=== PATIENT | male | born 1955 | race Caucasian/White ===

== ENCOUNTER 2016-12-28 23:26 | Inpatient (IN) ==
[2016-12-28] MEDS ORDERED: *HR* Ticagrelor 90 MG TABLET PO ONE (23:33)
--- NOTE | 2016-12-28 23:33 | Emergency Department Note ---
Disposition Clinical Impression: ST elevation myocardial infarction (STEMI) Qualifiers: Involved coronary artery: LAD coronary artery Qualified Code(s): I21.02 - ST elevation (STEMI) myocardial infarction involving left anterior descending coronary artery Disposition: Admitted As Inpatient Condition: Serious Chest Pain HPI - General Chief Complaint: ED Chest Pain Stated Complaint: CP Time Seen by Provider: 12/28/16 23:32 Source: patient Mode of arrival: EMS Limitations: no limitations Vital Signs Reviewed: Yes Nursing Notes Reviewed: Yes - History of Present Illness HPI Narrative: 61-year-old male history of COPD who presents to the ER due to chest pain. Patient reports he has had intermittent chest pain for the last few months. He states this evening and lasted longer than usual. He describes sharp pain in the center of his chest without radiation. No dyspnea, diaphoresis, nausea, vomiting. No history of coronary artery disease. No history of OH, DVT or PE. Patient was given one sublingual nitroglycerin and 324 mg aspirin prior to arrival. His pain is not reproducible on exam. His EKG demonstrated ST elevations in the anterior leads and STEMI alert was called at 23:20. Currently waiting for interventional cardiology. Patient given 180 mg of Brilinta and a heparin bolus. Pt complaint: chest pain Onset (ago): hour(s) Duration: constant Onset: during rest Pain Location: substernal Severity: moderate Severity scale (1-10): 5 Quality: sharp Pain Radiation: none Improves with: nothing Worsens with: nothing Associated symptoms: Denies: nausea, vomiting, diaphoresis Treatments prior to arrival chest pain: aspirin, nitroglycerin - Related Data On Oral Contraceptives: No Home Medications Medication Instructions Recorded Confirmed Albuterol Sulfate [Proair Hfa] 2 puff IH Q4H PRN 10/15/15 10/15/15 Trazodone HCl 200 mg PO HS 10/15/15 10/15/15 clonazePAM [Klonopin] 1 mg PO DAILY 10/15/15 10/15/15 Previous Rx's Medication Instructions Recorded Naproxen [Naprosyn] 500 mg PO BID #20 tablet 07/10/16 Allergies Allergy/AdvReac Type Severity Reaction Status Date / Time codeine AdvReac Nausea Verified 07/10/16 10:35 morphine AdvReac Vomiting Verified 07/10/16 10:35 All systems ED: reviewed and negative except as stated. Constitutional: Denies: fever Cardiovascular: Reports: chest pain. Denies: palpitations Respiratory: Denies: cough, dyspnea, wheezes Gastrointestinal: Denies: abdominal pain, nausea, vomiting, diarrhea Chest Pain PMH - Past Medical History Medical history: Reports: non-contributory, COPD Surgical history: Reports: arthroscopy Psychiatric history: Reports: no psych history - Social History Smoking Status: Current every day smoker Alcohol use: Reports: none Drug use: Reports: none Physical Exam - General Limitations: no limitations General appearance: alert, in no apparent distress - Head Head exam: atraumatic, normocephalic, normal inspection - Eye Eye exam: Present: normal appearance, EOMI - ENT ENT exam: normal exam - Neck Neck exam: Present: normal inspection, full ROM - Chest Chest inspection: Present: normal inspection, symmetric chest wall rise. Absent : tenderness - Respiratory Respiratory exam: Present: normal lung sounds bilaterally - Cardiovascular Cardiovascular exam: Present: regular rate, normal rhythm, normal heart sounds - Abdominal Exam Abdominal exam: Present: soft, Non-Tender. Absent: tenderness, distention, rigidity - Extremities Exam Extremities exam: Present: normal inspection, full ROM - Expanded Upper Extremity Exam Shoulder exam: Present: normal inspection, full ROM Arm exam: Present: normal inspection, full ROM Elbow exam: Present: normal inspection, full ROM Forearm/Wrist exam: Present: normal inspection, full ROM Hand exam: Present: normal inspection, full ROM Vascular exam: Normal: radial pulse - Expanded Lower Extremity Exam Hip/Pelvis exam: Present: normal inspection, full ROM Upper leg exam: Present: normal inspection, full ROM Knee exam: Present: normal inspection, full ROM Lower leg exam: Present: normal inspection, full ROM Ankle exam: Present: normal inspection, full ROM Foot/toe exam: Present: normal inspection, full ROM Neurovascular/Tendon exam: Absent: motor deficit, sensory deficit - Neurological Exam Neurological exam: Present: alert, other (ECS 15. Nonfocal neurologic exam.) - Psychiatric Psychiatric exam: Present: normal affect, normal mood - Skin Skin exam: Present: warm, dry, intact, normal color Course Course Narrative: Patient seen and examined. STEMI alert called prehospital based on transmitted EKG. His repeat EKG shows evolving ST elevations into the lateral leads as well. Currently waiting on interventional cardiology. - Consultations Consultation #1: Layboy Tender paged again Time: 23:35 Consultation #2: I spoke with the on-call scheduling administrator Dr. Cedillo. Discussed patient's history EKGs and interventions to date including 324 mg aspirin, one sublingual nitroglycerin, 180 mg of Brilinta and a heparin bolus. Requests to have EKG sent to him. We will send for evaluation. Time: 23:49 Vital Signs Temperature 98.6 F 12/28/16 23:28 Pulse Rate 86 12/28/16 23:28 Respiratory Rate 16 12/28/16 23:28 Blood Pressure 136/91 12/28/16 23:28 O2 Sat by Pulse Oximetry 96 12/28/16 23:28 Temperature 98.1 F 12/29/16 04:58 Pulse Rate 67 12/29/16 05:05 Respiratory Rate 17 12/29/16 05:05 Blood Pressure 96/63 12/29/16 05:05 O2 Sat by Pulse Oximetry 93 12/29/16 05:05 Oxygen Delivery Oxygen Delivery Room Air Chest Pain - MDM Narrative Medical decision making narrative: 61-year-old male presents to the ER due to chest pain. Intermittently for the last few months with worsening pain tonight. Prehospital EKG was transmitted demonstrating STEMI criteria. STEMI was called prior to the patient's arrival. Case discussed with the automotive collision estimator. The patient received aspirin and nitroglycerin prior to arrival. He was given a dose of Brilinta here as well as a heparin bolus. Patient taken emergently to the laboratory technologist for intervention. - Lab Data Lab results reviewed: Yes I reviewed the patient's lab results. Result diagrams: 12/28/16 23:30 12/28/16 23:30 Lab Results 12/28/16 12/28/16 12/28/16 Range/Units 23:30 23:30 23:30 WBC 9.2 (4.3-11.1) K/mcL RBC 5.02 (4.19-5.50) M/mcL Hgb 15.2 (12.9-16.9) g/dL Hct 44.6 (37.5-50.1) % MCV 88.8 (83.0-100.0) fL MCH 30.3 (28.0-33.3) pg MCHC 34.1 (31.6-35.5) g/dL RDW 14.4 (11.5-14.5) % Plt Count 231 (140-400) K/mcL MPV 9.7 (9.4-12.4) fL Immature Gran % 0.3 (0-4) % Seg Neutrophils % 66.4 % Lymphocytes % 19.0 % Monocytes % 10.1 % Eosinophils % 3.8 % Basophils % 0.4 % Neutrophils # 6.1 (1.6-8.9) K/mcL Lymphocytes # 1.8 (0.6-4.6) K/mcL Monocytes # 0.9 (0.0-1.3) K/mcL Eosinophils # 0.4 (0.0-0.6) K/mcL Basophils # 0.0 (0.0-0.2) K/mcL PT 11.8 (9.4-12.1) Seconds INR 1.1 APTT 29.2 (26.0-36.0) Seconds Sodium 135 L (136-145) mEq/L Potassium 4.6 H (3.5-4.5) mEq/L Chloride 101 (98-109) mEq/L Carbon Dioxide 23 (19-29) mEq/L BUN 14 (8-26) mg/dL Creatinine 1.13 (0.72-1.25) mg/dL Est GFR ( Amer) > 60 (> 60) Est GFR (Non-Af Amer) > 60 (> 60) BUN/Creatinine Ratio 12 (6-26) Glucose 116 H (70-99) mg/dL Calculated Osmolality 281 (280-300) Calcium 9.6 (8.6-10.8) mg/dL Troponin I (0-0.03) ng/mL 12/28/16 Range/Units 23:30 WBC (4.3-11.1) K/mcL RBC (4.19-5.50) M/mcL Hgb (12.9-16.9) g/dL Hct (37.5-50.1) % MCV (83.0-100.0) fL MCH (28.0-33.3) pg MCHC (31.6-35.5) g/dL RDW (11.5-14.5) % Plt Count (140-400) K/mcL MPV (9.4-12.4) fL Immature Gran % (0-4) % Seg Neutrophils % % Lymphocytes % % Monocytes % % Eosinophils % % Basophils % % Neutrophils # (1.6-8.9) K/mcL Lymphocytes # (0.6-4.6) K/mcL Monocytes # (0.0-1.3) K/mcL Eosinophils # (0.0-0.6) K/mcL Basophils # (0.0-0.2) K/mcL PT (9.4-12.1) Seconds INR APTT (26.0-36.0) Seconds Sodium (136-145) mEq/L Potassium (3.5-4.5) mEq/L Chloride (98-109) mEq/L Carbon Dioxide (19-29) mEq/L BUN (8-26) mg/dL Creatinine (0.72-1.25) mg/dL Est GFR ( Amer) (> 60) Est GFR (Non-Af Amer) (> 60) BUN/Creatinine Ratio (6-26) Glucose (70-99) mg/dL Calculated Osmolality (280-300) Calcium (8.6-10.8) mg/dL Troponin I 0.14 H* (0-0.03) ng/mL - Radiology Data Radiology results reviewed: Yes I reviewed the patient's radiology results. Chest X-Ray 12/28/16 23:31 IMPRESSION: Negative portable study. D/ / Taina Salinas Cha, MD / Taina Salinas Cha, MD Interpreting Provider: Taina Salinas Cha, MD - EKG Data EKG attestation: Yes I reviewed and interpreted this EKG. EKG results narrative: EKG demonstrates sinus rhythm with a rate of 80 bpm. Normal axis. Normal intervals. Normal R-wave progression. EKG demonstrates ST elevations in leads V3V5. ST elevations of roughly 3 mm without reciprocal changes. No ST depressions. Changes from previous EKG include ST elevations in the anterior lateral leads. STEMI Heart Score - Score History: Moderately Suspicious EKG: Significant ST-Depression Age: 45-65 Risk Factors: 1-2 risk factors Troponin: Greater than 3x normal limit HEART Score Total: 7 Critical Care Time Critical Care Time: Yes Total Critical Care Time: 40 Attestation: Critical care performed: Time is exclusive of separately billable procedures. Time includes: direct patient care, patient reassessment, coordination of patient care, interpretation of data (laboratory data, radiology data, and respiratory data), review of patient's medical records, medical consultation and documentation of patient care. Procedures included in critical care time: Procedures excluded from critical care time: Attestation Statement - Attestation Attestation: I, Alok Argueta MD, personally evaluated this patient and discussed their management with the resident physician. I reviewed the resident's note and agree with the documented findings, medical decision making, and plan of care. 61-year-old male presents to the emergency department by EMS with a complaint of substernal chest pain which started about one hour prior to arrival. Onset of pain was while at rest. Patient denies any prior history of heart problems. Transmitted EKG from EMS shows an anteroseptal STEMI. STEMI alert was called prior to patient's arrival in the emergency department. EKG on arrival here confirms the anteroseptal STEMI with worsening of the ST elevation. Patient complains of mid substernal chest pain radiating to the left arm and to the back. He rated the pain about a 7 or 8 at the worse. He received 4 baby aspirin and one nitroglycerin per EMS just shortly prior to arrival in at present he rates the pain about a 5 out of 10. No shortness of breath or diaphoresis. No nausea or vomiting. No palpitations. On examination patient is a well-developed well-nourished well-appearing male in no acute distress. He is alert and oriented 3. There is no cyanosis or diaphoresis. Chest is nontender to palpation. Breath sounds are decreased but equal bilaterally. No rales or wheezes noted. Heart regular rate and rhythm. Abdomen soft and nontender with normal bowel sounds. No pedal edema. EKG shows ST elevation in V2 through V5. Chest x-ray negative. Labs reviewed. Troponin 0.14. Patient received heparin and Brilinta in the emergency department and was taken directly to the cardiac catheter lab for interventional catheter. hide mill man on-call is Dr. Cedillo.
[2016-12-28] MEDS ORDERED: *HR* Heparin 5,000 UNIT/ML VIAL IVP PRN ×2 (23:34)
[2016-12-28] MEDS ORDERED: *HR* Heparin 5,000 UNIT/ML VIAL IVP ONE (23:34)
[2016-12-28 23:41] LABS: Basophils % 0.4 %; Eosinophils # 0.4 K/mcL (0.0-0.6); Eosinophils % 3.8 %; Hematocrit 44.6 % (37.5-50.1); Hemoglobin 15.2 g/dL (12.9-16.9); Immature Granulocytes % 0.3 % (0-4); Lymphocytes # 1.8 K/mcL (0.6-4.6); Mean Corpuscular HGB Conc 34.1 g/dL (31.6-35.5); Mean Corpuscular Hemoglobin 30.3 pg (28.0-33.3); Mean Corpuscular Volume 88.8 fL (83.0-100.0); Mean Platelet Volume 9.7 fL (9.4-12.4); Monocytes # 0.9 K/mcL (0.0-1.3); Monocytes % 10.1 %; Neutrophils # 6.1 K/mcL (1.6-8.9); Platelet Count 231 K/mcL (140-400); Red Blood Count 5.02 M/mcL (4.19-5.50); Red Cell Distribution Width 14.4 % (11.5-14.5); Segmented Neutrophils % 66.4 %
[2016-12-28] MEDS ORDERED: Nitroglycerin 0.4 MG TAB.SUBL SL PRN (23:41)
[2016-12-28 23:46] LABS: INR 1.1; Prothrombin Time 11.8 Seconds (9.4-12.1)
[2016-12-28 23:49] LABS: Activated Partial Thrombo Time 29.2 Seconds (26.0-36.0)
[2016-12-28] MEDS ORDERED: 0.9 % Sodium Chloride 1,000 ML ONE ×2 (23:52→23:53)
[2016-12-28] MEDS ORDERED: Heparin 1,000 UNITS/500 mL NS 500 ML ONE (23:52)
[2016-12-28] MEDS ORDERED: Nitroglycerin 1,000 MCG/10 ML VIAL IV ONE (23:52)
[2016-12-28] MEDS ORDERED: Verapamil 5 MG/2 ML VIAL ONE (23:52)
[2016-12-28 23:53] LABS: BUN/Creatinine Ratio 12 (6-26); Blood Urea Nitrogen 14 mg/dL (8-26); Calcium 9.6 mg/dL (8.6-10.8); Carbon Dioxide 23 mEq/L (19-29); Chloride 101 mEq/L (98-109); Glucose 116 mg/dL (70-99); Osmolality,Calculated 281 (280-300); Potassium 4.6 mEq/L (3.5-4.5); Sodium 135 mEq/L (136-145); eGFR For African Americans > 60 (> 60); eGFR For Non-African Americans > 60 (> 60)
[2016-12-29] MEDS ORDERED: *HR* FentaNYL (PF) 100 MCG/2 ML VIAL ONE (00:03)
[2016-12-29] MEDS ORDERED: *HR* Midazolam HCl 2 MG/2 ML VIAL ONE (00:03)
[2016-12-29] MEDS ORDERED: Tirofiban 12.5 MG/250ML 12.5 MG/250 ML BAG ONE (00:12)
[2016-12-29] MEDS ORDERED: *HR* HYDROcodone/Acet 5/325 mg TABLET PO PRN (00:40)
[2016-12-29] MEDS ORDERED: *HR* Morphine 2 MG/ML SYRINGE IVP PRN (00:40)
[2016-12-29] MEDS ORDERED: Acetaminophen 325 MG TABLET PO PRN (00:40)
--- NOTE | 2016-12-29 00:40 | Pre-Sedation Evaluation ---
Pre-sedation evaluation - Pre-sedation checklist Date of procedure: 12/29/16 Procedure: [facility] Recent Vitals: Last Vital Signs Temp 98.6 F 12/28/16 23:28 Pulse 84 12/28/16 23:46 Resp 18 12/28/16 23:46 BP 133/104 12/28/16 23:46 Pulse Ox 95 12/28/16 23:46 H&P (including ROS) documented in medical record: Yes Previous reaction to sedatives/anesthetics: No Dietary Status: unknown Dentition: dentures removed ASA Classification *see protocol: CLASS II-Mild systemic disease, E-EMERGENCY- Add to any of the above to indicate emergent Plan of Care: Pt appropriate candidate for procedure/moderate/conscious sedation , Risks/benefits of procedure/sedation discussed w/ patient/family, If not NPO; Risk of intake outweiged by necessity to perform procedure
--- NOTE | 2016-12-29 00:40 | Cardiology History & Physical ---
Date of Encounter: 01/02/17 Time of Encounter: 12:45 Assessment and Plan (1) ST elevation myocardial infarction (STEMI) Status: Acute Anterolateral STEMI - emergent LHC to delineate coronary disease amenable to intervention. EF assessment will be done. Aspirin, brilinta, heparin, statin. Cardiac rehab. Guarded prognosis. Total critical care time - 1 hour. Qualifiers: Involved coronary artery: LAD coronary artery Qualified Code(s): I21.02 - ST elevation (STEMI) myocardial infarction involving left anterior descending coronary artery (2) Hyperlipidemia Status: Chronic Per cardiology: -KNown hyperlipidemia. -LAbs in September with LDL 116. -Was not on statin at home. -Start on atorvastatin while inpatient. Qualifiers: Hyperlipidemia type: mixed hyperlipidemia Qualified Code(s): E78.2 - Mixed hyperlipidemia (3) Tobacco abuse Status: Chronic Per cardiology: -KNown tobacco abuse. Admits to smoking 1.5-2ppd for 40 years, -Will order nicotine patch. History of Present Illness Chief complaint: chest pain HPI: Mr. Meng is a 61 year old male smoker no previous cardiac history presenting with severe retrosternal chest discomfort that restarted earlier this morning around 530. He notes intermittent symptoms for quite some time but does not specify. Chest discomfort radiates across chest and is associated with dyspnea. It had minimal improvement with aspirin/NTG/morphine and remains a 9/ 10. Anterolateral STEMI seen on EKG and bobcat driver/labor activated. Past Med Surg Social Fam HX - Past Medical History Medical history: non-contributory, COPD Psychiatric history: no psych history - Past Surgical History Surgical History: arthroscopy - Social History Smoking Status: Current every day smoker Smokeless Tobacco Status: No Alcohol use: none Drug use: none Medications and Allergies Albuterol Sulfate [Proair Hfa] 2 puff IH Q4H PRN 10/15/15 [History] Trazodone HCl 200 mg PO HS 10/15/15 [History] clonazePAM [Klonopin] 1 mg PO DAILY 10/15/15 [History] Mometasone/Formoterol [Dulera 100 Mcg/5 Mcg Inhaler] 2 puff IH BID 12/29/16 [ History] Aspirin 81 mg PO DAILY #30 tab.chew 12/31/16 [Rx] Atorvastatin [Lipitor] 80 mg PO HS #30 tablet 12/31/16 [Rx] Metoprolol [Lopressor] 12.5 mg PO BID #30 tablet 12/31/16 [Rx] Nicotine Patch [Nicoderm] 21 mg TD DAILY #28 patch.td24 12/31/16 [Rx] Nitroglycerin 0.4 mg SL Q5MIN PRN #30 tab.subl 12/31/16 [Rx] Ticagrelor [Brilinta] 90 mg PO BID #60 tablet 12/31/16 [Rx] 3 Allergy/AdvReac Type Severity Reaction Status Date / Time codeine AdvReac Nausea Verified 07/10/16 10:35 morphine AdvReac Vomiting Verified 07/10/16 10:35 All Systems Review: A 10-system review of systems was performed and is negative for pertinent findings except as documented above in the HPI. - Constitutional Constitutional: no chills, no fever(s) - EENT Eyes: no blurred vision, no loss of vision Nose, mouth and throat: no bleeding gums, no epistaxis - Cardiovascular Cardiovascular: chest pain at rest, chest pain with exertion - Respiratory Respiratory: dyspnea, no hemoptysis, no wheezing - Gastrointestinal Gastrointestinal: no hematemesis, no hematochezia - Genitourinary Genitourinary: no hematuria, no nocturia - Musculoskeletal Musculoskeletal: no back pain, no myalgias - Integumentary Integumentary: no erythema, no rash - Neurological Neurological: no focal weakness, no loss of vision - Psychiatric Psychiatric: no hallucinations, no panic attacks - Hematological/Lymphatic Hematologic/Lymphatic: no easy bruising Physical Examination General: Conversant, Other (distressed) HEENT: Atraumatic, Normocephaly Neck: No JVD Cardiac: Reg Rate and Rhythm Lungs: Other (occ wheezes) Neuro: Alert and responsive Abdomen: Soft Skin: No rashes noted on visualized skin Musculoskeletal: No Chest Wall Tenderness Extremities: No Edema Results 12/29/16 06:38 12/29/16 06:38 - EKG Interpretation EKG results cardiology: personally reviewed (anterolateral current of injury)
[2016-12-29] MEDS ORDERED: Ondansetron 4 MG/2 ML VIAL IVP PRN (00:41)
[2016-12-29] MEDS ORDERED: Tirofiban 12.5 MG/250ML 12.5 MG/250 ML BAG IVC SCH (00:45)
--- NOTE | 2016-12-29 01:03 | Invasive Diagnostic Lab Proc ---
Name: Usman Meng Date of Study: 12/28/2016 Date: 1955 Ht: 66.1in Medical Record#: [id number] Age: 61 Wt: 139.99lb Gender: Male BSA: 1.72 Order #: [id number] BMI: 22.5 Physicians Procedure Physician: Ervin Cedillo MD, FACC Referring MD: Referring MD: Staff Name Position Time In Wander Solitario RT (R) Scrub 12:02 AM Chanell Sanchez RN Books Salesperson 12:03 AM Carol Stapleton RN Books Salesperson 12:03 AM Amador Matute RN Books Salesperson 12:04 AM Genoveva Perez RN Monitor 12:04 AM Indications Indication STEMI Procedures Performed Procedure PRQ CARD REVASC CA 1 VSL L HRT ARTERY/VENTRICLE ANGIO Pre-Procedure Checklist Informed consent is complete signed and on chart. H&P is on chart. ID band is on and ID verified with patient. Patient NPO for procedure The procedure was described for the patient and questions were answered. Blood Pressure: 133/77 ECG is on chart. Rhythm: NSR Plan of Care Patient will tolerate the procedure without complications. Adequate level of comfort will be maintained. Hemodynamics will remain stable Patient will recover from procedure without complications. Respiratory function will be maintained. Cardiac rhythm will remain stable. Patient temperature will be maintained. Patient and/or family have verbalized understanding of the procedure. Patient Education Chief Complaint/Reason for Test: Cardiac Cath Developmental Category: Adult (18-64 years) Developmentally Appropriate for Age: Yes Learning Barriers: None Education Needs: Procedure Education Method: Verbal Information Taught: Cardiac Cath Educational Evaluation: Able to repeat information Intravenous Access Time IV Size Location DC'd Fluid/Drip Rate Units RN 11:59 PM 20g 1 1/4" Patent On Arrival Lt Antecubital 0.9NaCl 100 ml/hr Carol Stapleton RN 11:59 PM 20g 1 1/4" Patent On Arrival Rt Wrist Allergies *HR* CODEINE Vital Signs Time BP (mmHg) HR (bpm) O2 Sat. RR (bpm) LOC 12:12 AM / % 5 = Fully awake and oriented or at pre-proc level 12:12 AM / % 5 = Fully awake and oriented or at pre-proc level 11:58 PM / 82 94 % 11:59 PM 133 / 77 81 96 % 9 5 = Fully awake and oriented or at pre-proc level 12:04 AM 115 / 73 80 96 % 20 5 = Fully awake and oriented or at pre-proc level 12:09 AM 88 / 69 83 95 % 17 5 = Fully awake and oriented or at pre-proc level 12:10 AM 98 / 66 72 95 % 20 5 = Fully awake and oriented or at pre-proc level 12:14 AM 106 / 70 80 94 % 19 5 = Fully awake and oriented or at pre-proc level 12:19 AM 107 / 70 80 95 % 19 5 = Fully awake and oriented or at pre-proc level 12:23 AM 95 / 64 85 95 % 14 5 = Fully awake and oriented or at pre-proc level 12:24 AM 101 / 62 81 95 % 15 5 = Fully awake and oriented or at pre-proc level 12:29 AM 104 / 60 83 96 % 17 5 = Fully awake and oriented or at pre-proc level 12:34 AM 104 / 63 79 96 % 17 5 = Fully awake and oriented or at pre-proc level 12:39 AM 116 / 75 81 96 % 11 Procedural Medications Time Medication Dose Units Method Given By 12:05 AM Oxygen 2 L/min nasal cannula Carol Stapleton RN 12:05 AM Versed 2 mg Intravenous Carol Stapleton RN 12:05 AM Fentanyl 50 mcg Intravenous Carol Stapleton RN 12:13 AM Aggrastat Bolus: 33 ml Intravenous Carol Stapleton RN 12:13 AM Aggrastat 12.5mg/250ml 12 ml/hr Intravenous Carol Stapleton RN 12:19 AM Nitroglycerin 75 mcg Intracoronary Ervin Cedillo MD ASA Classification: Emergent Procedure: ASA score is assumed John Score Preprocedure Postprocedure Activity 2- Moves 4 extremities sustained head lift Activity 2- Moves 4 extremities sustained head lift Circulation 2- SBP +/= 20 points of pre-anesthetic level Circulation 2- SBP +/= 20 points of pre-anesthetic level Consciousness 2- Awake and alert oriented x 3 Consciousness 2- Awake and alert oriented x 3 O2 Saturation 2- Able to maintain O2 satruation of 92% on room air O2 Saturation 2- Able to maintain O2 satruation of 92% on room air Respiratory 2- Able to deep breathe and cough well Respiratory 2- Able to deep breathe and cough well Total Score 10 Total Score 10 Contrast Agent: Isovue Diagnostic Contrast: 121 ml Total Contrast: 121 ml Fluoro Dose: 205 mGy Activated Clotting Time Time Seconds to Clot 12:35 AM 259 Procedure Log Time Note Enter By 11:54 PM Pt arrived to manager labor delivery 2 at 23[facility] 11:58 PM HR=82 bpm, SpO2=94 % 11:59 PM Vitals capture started with the following parameters, Patient=Adult, Interval=5 min, Initial Fuiumrjl=918 mmHg, Deflation Rate=5 mmHg, Cuff placed on Left Arm 11:59 PM HR=81 bpm, AKVQ=049/77 mmhg, SpO2=96.0 %, Resp=9 B/min, Comment=SR 12:00 AM Genoveva Perez RN Position: Monitor Time in: 00:00 [facility] 12:01 AM Recorded ECG: HR=89 Condition=Condition 1 12:02 AM Meet and greet completed ejohnson 12:02 AM Pressure channel 3 zero failed. 12:02 AM Pressure channel 3 zeroed. 12:02 AM Procedure start 00:02 [email or web address] 12:03 AM Wander Solitario RT (R) Position: Scrub Time in: 00:02 [facility] 12:03 AM Chanell Sanchez RN Position: Books Salesperson Time in: 00:03 [facility] 12:04 AM Carol Stapleton RN Position: Books Salesperson Time in: 00:03 [facility] 12:04 AM Amador Matute RN Position: Books Salesperson Time in: 00:04 [facility] 12:04 AM HR=80 bpm, QMTP=944/73 mmhg, SpO2=96.0 %, Resp=20 B/min, Comment=SR 12:05 AM Time: 00:05 Versed 2 mg Intravenous Given by Carol Stapleton RN 12:05 AM Time: 00:05 Fentanyl 50 mcg Intravenous Given by Carol Stapleton RNohhan 12:05 AM Time out performed according to hospital policy [email or web address] 12:05 AM Time: 00:05 Oxygen on at 2 L/min per nasal cannula by Carol Stapleton RNohhan 12:06 AM Time: 00:006 15 ml Lidocaine 2% to right groin Subcutaneous Given by Ervin Cedillo MD, [facility] [email or web address] 12:07 AM Access obtained by percutaneous puncture. 6Fr 10cm Terumo [place] sheath placed in right Femoral artery. [id number] ejohnson 12:09 AM HR=83 bpm, NIBP=88/69 mmhg, SpO2=95.0 %, Resp=17 B/min, Comment=SR 12:09 AM NIBP STAT measurement started. 12:10 AM 6Fr EBU 3.0 Medtronic guide catheter was used to cannulate the PCI vessel successfully. reused? No ejohnson 12:10 AM .014 [place] 150cm guide wire across target lesion- successful. reused? No ejohnson 12:10 AM HR=72 bpm, NIBP=98/66 mmhg, SpO2=95.0 %, Resp=20 B/min, Comment=SR 12:10 AM Recorded Pressure: Ao, HR=80, Condition=Condition 1 (Aorta) Ao 85/52/67 12:10 AM Inflation device was opened. ejohnson 12:11 AM 2.0 mm x 12 mm Emerge Monorail balloon across target lesion- successful. reused? No ejohnson 12:11 AM Balloon inflated @ 6 marina for 3 seconds ejohnson 12:11 AM Time: 00:11 Patient comfortable and pain free: Yes ejohnson 12:12 AM Time: 00:12LOC: 5 = Fully awake and oriented or at pre-proc level ejohnson 12:13 AM Balloon inflated @ 10 marnia for 15 seconds ejohnson 12:13 AM Time: 00:13 Aggrastat Bolus: 33 ml Intravenous Given by Carol Stapleton RN Ashley pump ejohnson 12:14 AM Time: 00:13 Aggrastat 12.5mg/250ml 12 ml Intravenous Given by Carol Stapleton RN Ashley pump ejohnson 12:14 AM Balloon inflated @ 10 marina for 20 seconds ejohnson 12:14 AM Lesion found in Mid LAD. Pre Stenosis: 99 Pre FAIZA Flow: 1: Slow Penetration without Perfusion ejohnson 12:14 AM HR=80 bpm, TGOL=248/70 mmhg, SpO2=94.0 %, Resp=19 B/min, Comment=SR 12:14 AM Mid/Distal Left Anterior Descending Coronary Artery and diagonal branches with 99% stenosis. ejohnson 12:15 AM Recorded Pressure: Ao, HR=84, Condition=Condition 1 (Aorta) Ao 89/55/71 12:15 AM 2.25mm x 24mm Synergy drug-eluting stent across target lesion- successful Lot #[id number] ejohnson 12:16 AM Stent deployed @ 14 marina for 24 seconds ejohnson 12:17 AM Recorded Pressure: Ao, HR=81, Condition=Condition 1 (Aorta) Ao 75/44/59 12:18 AM 2.25 mm x 15mm NC Trek Rx balloon across target lesion- successful. reused? No ejohnson 12:19 AM Balloon inflated @ 16 marina for 12 seconds ejohnson 12:19 AM HR=80 bpm, ZNKT=315/70 mmhg, SpO2=95.0 %, Resp=19 B/min, Comment=SR 12:20 AM Time: 00:19 Nitroglycerin 75 mcg Intracoronary Given by Ervin Cedillo MD ejohnson 12:21 AM Balloon catheter removed intact. ejohnson 12:22 AM NIBP STAT measurement started. 12:22 AM 2.25mm x 8mm Synergy drug-eluting stent across target lesion- successful Lot #[id number] ejohnson 12:22 AM Stent deployed @ 11 marina for 20 seconds ejohnson 12:23 AM HR=85 bpm, NIBP=95/64 mmhg, SpO2=95.0 %, Resp=14 B/min, Comment=SR 12:23 AM Stent deployed @ 14 marina for 25 seconds ejohnson 12:23 AM Lesion found in Proximal LAD. Pre Stenosis: 30 Pre FAIZA Flow: 3: Complete and Brisk Flow/Perfusion ejohnson 12:24 AM Lesion found in Distal Circumflex. Pre Stenosis: 40 Pre FAIZA Flow: 3: Complete and Brisk Flow/Perfusion ejohnson 12:24 AM Lesion found in 1st Marginal. Pre Stenosis: 20 Pre FAIZA Flow: 3: Complete and Brisk Flow/Perfusion ejohnson 12:24 AM Stent delivery system removed intact. ejohnson 12:24 AM Guide wire removed intact. ejohnson 12:24 AM Pressure channel 3 zeroed. 12:24 AM HR=81 bpm, NCZL=045/62 mmhg, SpO2=95.0 %, Resp=15 B/min, Comment=SR 12:24 AM Proximal Left Anterior Descending Coronary Artery with 30% stenosis. ejohnson 12:25 AM Circumflex, Obtuse Marginal, Left Posterior Descending, and Left Posterolateral Coronary Arteries with 40 % stenosis. ejohnson 12:25 AM Guide catheter removed intact. ejohnson 12:25 AM 5Fr FR 4 catheter inserted over the wire DNC ejohnson 12:25 AM Patient charges- Angio tray pack, Navilyst 3mm J, Pulse Oximetry and ACIST tubing and transducer ejohnson 12:26 AM Coronary Dominance: right ejohnson 12:27 AM Time: 00:12LOC: 5 = Fully awake and oriented or at pre-proc level ejohnson 12:27 AM Time: 00:11 Patient comfortable and pain free: Yes ejohnson 12:27 AM Coronary Dominance: right ejohnson 12:27 AM Catheter removed ejohnson 12:28 AM 5Fr Pigtail catheter inserted over the wire DNC ejohnson 12:28 AM Recorded Pressure: LV, HR=97, Condition=Condition 1 (Left Ventricle) LV 106/38/18 12:28 AM Catheter selectively placed in left ventricle ejohnson 12:28 AM Bolus angiogram of left Ventricle complete: 10 ml/sec for a total of 20 mls ejohnson 12:29 AM Recorded Pressure: LV, Ao, HR=82, Condition=Condition 1 (Left Ventricle) LV 108/11/23, (Aorta) Ao 104/69/85 12:29 AM Catheter removed ejohnson 12:29 AM Bolus angiogram of right Femoral complete: 4 ml/sec for a total of 7 mls ejohnson 12:29 AM HR=83 bpm, BMRC=253/60 mmhg, SpO2=96.0 %, Resp=17 B/min, Comment=SR 12:29 AM Recorded Pressure: Ao, HR=84, Condition=Condition 1 (Aorta) Ao 112/67/85 12:32 AM Procedure completed at 00:32 ejohnson 12:32 AM Sign out completed: Radiation Dose 204.7 mGy Fluoro Time: 3.3 Isovue 370 - 200ml contrast 121 ml given by Ervin Cedillo MD, [facility]. Complications: NoneCardiac Rehab Consult needed: YesConfirmed administered medications: Yes ejohnson 12:34 AM HR=79 bpm, LJDL=535/63 mmhg, SpO2=96.0 %, Resp=17 B/min, Comment=SR 12:35 AM Arterial sheath pulled, Mynx closure device used and was Successful [id number] S/N. ejohnson 12:37 AM Site status No bleeding/hematoma - Rt Groin as reported by Wander Solitario RT (R) at 00:48 ejohnson 12:37 AM Isovue 370 - 200ml,1 Bottle(s) used. ejohnson 12:39 AM HR=81 bpm, ZDAN=122/75 mmhg, SpO2=96.0 %, Resp=11 B/min, Comment=SR 12:42 AM Time: 00:27 Patient comfortable and pain free: Yes ejohnson 12:47 AM Post ECG NSR ejohnson 12:47 AM Post Blood Pressure 116/75 ejohnson 12:47 AM 00:47 Post Pulses Bilateral DP & PT 1+ ejohnson 12:47 AM Information taught PCI and Mynx ejohnson 12:48 AM Learning barriers :None ejohnson 12:48 AM Education Methods Verbal ejohnson 12:48 AM Education evaluation Able to repeat information ejohnson 12:49 AM Opsite applied ejohnson 12:49 AM Plavix, Effient or Brilinta given Yes in ER ejohnson 12:51 AM Patient out of room: 00:51 ejohnson 12:51 AM Family placed in consult room. ejohnson 12:51 AM Complications: None ejohnson 12:51 AM At 00:35 the ACT was 259 seconds. ejohnson 12:52 AM Lesion found in Mid RCA. Pre Stenosis: 70 Pre FAIZA Flow: 3: Complete and Brisk Flow/Perfusion ejohnson 12:52 AM Right Coronary, Right Posterior Descending Arteries with Right Posterolateral and Acute Marginal branches with 70 % stenosis. ejohnson 11:59 PM Physician arrived 23:59 ejohnson 11:59 PM Sign in performed according to hospital policy. ejohnson Complications Complication None Hemodynamics Pressures Site Systolic/A Wave Diastolic/V Wave Mean AO 85 52 67 AO 89 55 71 AO 75 44 59 LV 106 38 18 LV 108 11 23 AO 104 69 85 AO 112 67 85 Post Procedure Information Blood Pressure: 116/75 mmHg Rhythm: NSR Post procedural instructions were given Closure Device Time Device Success/Fail 12/29/2016 12:35:00 AM MynxGrip Successful Site Checks Time Location Status Staff Sheath In? Note 12:35 AM Rt Groin No bleeding/ No Hematoma Wander Solitario RT (R) 12:48 AM Rt Groin No bleeding/hematoma Wander Solitario RT (R) Pulses Time Site Pre-Procedure Post-Procedure Note 12/29/2016 11:59:00 PM Bilateral DP & PT 1+ 12:47:00 AM Bilateral DP & PT 1+ Updated by Genoveva Perez RN on 12/29/2016 12:56:34 AM Genoveva Perez RN electronically signed on 12/29/2016 12:56:58 AM with status of Final
[2016-12-29] MEDS: *HR* OxyCODONE/APAP 5/325 TABLET PO PRN ×4 (01:11→19:27)
[2016-12-29 06:55] LABS: Basophils % 0.3 %; Eosinophils # 0.3 K/mcL (0.0-0.6); Eosinophils % 3.1 %; Hematocrit 38.3 % (37.5-50.1); Immature Granulocytes % 0.6 % (0-4); Lymphocytes # 1.7 K/mcL (0.6-4.6); Lymphocytes % 18.1 %; Mean Corpuscular HGB Conc 34.2 g/dL (31.6-35.5); Mean Corpuscular Hemoglobin 30.5 pg (28.0-33.3); Mean Corpuscular Volume 89.1 fL (83.0-100.0); Mean Platelet Volume 9.6 fL (9.4-12.4); Monocytes % 10.8 %; Neutrophils # 6.3 K/mcL (1.6-8.9); Platelet Count 189 K/mcL (140-400); Red Cell Distribution Width 14.6 % (11.5-14.5); Segmented Neutrophils % 67.1 %
[2016-12-29 07:10] LABS: Alanine Aminotransferase 26 Units/L (0-55); Albumin 3.1 g/dL (3.5-5.0); Albumin/Globulin Ratio 1.1 (1.1-2.2); Alkaline Phosphatase 124 Units/L (38-126); Aspartate Amino Transferase 55 Units/L (5-34); BUN/Creatinine Ratio 16 (6-26); Blood Urea Nitrogen 15 mg/dL (8-26); Calcium 8.5 mg/dL (8.6-10.8); Carbon Dioxide 22 mEq/L (19-29); Chloride 110 mEq/L (98-109); Globulin 2.8 g/dL (2.4-3.5); Glucose 112 mg/dL (70-99); Osmolality,Calculated 290 (280-300); Potassium 3.9 mEq/L (3.5-4.5); Sodium 139 mEq/L (136-145); Total Protein 5.9 g/dL (6.0-8.3); eGFR For African Americans > 60 (> 60); eGFR For Non-African Americans > 60 (> 60)
[2016-12-29 07:13] LABS: Bilirubin,Total < 0.2 mg/dL (0.2-1.2)
[2016-12-29] MEDS: Aspirin 81 MG TAB.CHEW PO SCH (07:50)
[2016-12-29] MEDS: *HR* Ticagrelor 90 MG TABLET PO SCH ×2 (07:50→19:22)
[2016-12-29 08:41] LABS: Hemoglobin 13.1 g/dL (12.9-16.9)
--- NOTE | 2016-12-29 12:04 | Event Note ---
Date of Encounter: 12/29/16 Time of Encounter: 10:00 - Cardiology Event Note Patient presented to [facility] as STEMI. Patient was taken emergently to the chemical lab technician. Patient received 2 MILADIS to mid LAD. Patient is on asa and brilinta. Educated on dual anti-platelet therapy uninterrupted for at least one year. Will start beta susanna and statin. Denies chest pain, however reports some chest achiness. Will continue to monitor. Echo with LVEF 55%, mild diastolic dysfunction, apex, apical septal, and mid anterior septal michael hypokinetic. Patient educated on importance of smoking cessation. Right groin access site without bleeding or hematoma. Right DP pulse 2+.
[2016-12-29] MEDS: clonazePAM 1 MG TABLET PO SCH (13:35)
--- NOTE | 2016-12-29 20:55 | Electrocardiograph Report ---
[address] [place], [place] [address] Test Date: 2016-12-28 Pat Name: Usman Meng Department: 103 Room: 10 Gender: M Cafeteria Assistant: GINETTE : 1955 Requested By: Rufus Darden Order Number: [id number] Reading MD: Ervin Cedillo MD Measurements Intervals [place] Rate: 88 P: 68 HI: 174 QRS: 23 QRSD: 90 T: 69 QT: 347 QTc: 393 Interpretive Statements SINUS RHYTHM ANTERIOR CURRENT OF INJURY - ACUTE [place] BASELINE ARTIFACT Electronically Signed On 12-29-2016 20:53:43 EDT by Ervin Cedillo MD
--- NOTE | 2016-12-29 20:57 | Electrocardiograph Report ---
[place] [address] Test Date: 2016-12-29 Pat Name: Usman Meng Department: 109 Room: 10 Gender: M Associate Dean Of Women: MINERVA : 1955 Requested By: Ervin Cedillo Order Number: [id number] Reading MD: Ervin Cedillo MD Measurements Intervals [place] Rate: 76 P: 74 [place]: 174 QRS: 65 QRSD: 94 T: 78 QT: 370 QTc: 400 Interpretive Statements SINUS RHYTHM Electronically Signed On 12-29-2016 20:55:00 EDT by Ervin Cedillo MD
[2016-12-30] MEDS: *HR* OxyCODONE/APAP 5/325 TABLET PO PRN ×4 (00:24→19:57)
[2016-12-30] MEDS: Aspirin 81 MG TAB.CHEW PO SCH (07:50)
[2016-12-30] MEDS: clonazePAM 1 MG TABLET PO SCH (07:50)
[2016-12-30] MEDS: *HR* Ticagrelor 90 MG TABLET PO SCH ×2 (07:51→19:58)
--- NOTE | 2016-12-30 11:41 | Cardiology Progress Note ---
Date of Encounter: 12/30/16 Time of Encounter: 09:00 Assessment and Plan (1) ST elevation myocardial infarction (STEMI) Current Visit: Yes Status: Acute Per cardiology: -ADmitted with acute STEMI, s/p PCI. -[facility] with 30% proximal LAD stenosis, 99% mid LAD stenosis with 2 MILADIS placed, 40 % distal circumflex, 20% OM1, 70% mid RCA. -Patient educated on importance of dual anti-platelet therapy uninterrupted for at least one year. Patient states understanding. -Echo with LVEf 55%, mild diastolic dsyfunction, no significant valvular dysfunction, apex, apical septal, and mid anterior septal michael hypokinetic. All other michael with normal motion. -ON asa, statin, beta susanna, and brilinta. ' -Right groin access site management education given to patient and family. -Denies chest pain overnight. -Will continue to monitor. -Will transfer out to telemetry floor today (2N or 2NE), if bed available. -Plan to discharge tomorrow. -Will need staged PCI, currently being approved in outpatient setting. Qualifiers: Involved coronary artery: LAD coronary artery Qualified Code(s): I21.02 - ST elevation (STEMI) myocardial infarction involving left anterior descending coronary artery (2) Tobacco abuse Current Visit: Yes Status: Chronic Per cardiology: -KNown tobacco abuse. Admits to smoking 1.5-2ppd for 40 years, -Will order nicotine patch. -I spent 5 minutes reviewing smoking cessation education with patient. (3) Hyperlipidemia Current Visit: Yes Status: Chronic Per cardiology: -KNown hyperlipidemia. -LAbs in September with LDL 116. -Was not on statin at home. -Started on atorvastatin while inpatient. Qualifiers: Hyperlipidemia type: mixed hyperlipidemia Qualified Code(s): E78.2 - Mixed hyperlipidemia Discussion w patient/family: The assessment and plan as outlined above was discussed with the patient and/or family members who expressed understanding and agreement. All questions were answered. Thank you for involving us in the care of your patient. Please call with any questions. Discussed and reviewed with Dr.John Terry. Subjective Principal diagnosis: STEMI Interval history: Patient states he feels good today. Patient denies chest pain overnight. Patient denies issues walking or using right leg. Objective Vital Signs, Last 4 Hours Temp Pulse Resp BP Pulse Ox 12/30/16 11:00 66 20 109/77 96 12/30/16 10:00 67 20 136/84 91 12/30/16 09:00 62 20 117/69 94 12/30/16 08:00 70 18 127/87 94 12/30/16 07:55 64 12/30/16 07:46 98.4 F General: Conversant, No Apparent Distress HEENT: Atraumatic, Normocephaly, Mucus Membranes Moist Neck: No JVD, Normal carotid pulses Cardiac: Reg Rate and Rhythm, Normal S1 and S2, No Murmur Lungs: Normal Breath Sounds, No Wheeze, Rales, Rhonchi Neuro: Alert and responsive, No focal deficits noted Abdomen: Soft, Non-Tender Skin: No rashes noted on visualized skin, Other (Right groin access site without hematoma or ecchymosis. ) Musculoskeletal: No Chest Wall Tenderness Extremities: No Clubbing, No Cyanosis, No Edema, Normal Pulses Results 12/29/16 06:38 12/29/16 06:38 Active Medications Acetaminophen (Tylenol) 650 mg PO Q6HR PRN PRN Reason: Mild Pain Stop: 06/30/17 00:41 Hydrocodone Bitart/Acetaminophen ([place] 5-325 Mg) 1 tab PO Q4HR PRN PRN Reason: Moderate Pain Stop: 06/30/17 00:41 Last Admin: 12/29/16 02:28 Dose: 1 tab Albuterol Sulfate (Albuterol Inhaler) 2 puff IH [id number] PRN PRN Reason: Shortness Of Breath Stop: 06/30/17 16:01 Albuterol Sulfate (Albuterol Inhaler) 2 puff IH [id number] JOHNATHON Stop: 07/01/17 11:46 Albuterol/Ipratropium (Duoneb) 3 ml IH [id number] JOHNATHON Stop: 07/01/17 11:46 Aspirin (Aspirin) 81 mg PO DAILY JOHNATHON Stop: 06/30/17 09:01 Last Admin: 12/30/16 07:50 Dose: 81 mg Atorvastatin Calcium (Lipitor) 80 mg PO HS JOHNATHON Stop: 06/30/17 21:01 Last Admin: 12/29/16 19:22 Dose: 80 mg Clonazepam (Klonopin) 1 mg PO DAILY JOHNATHON Stop: 06/30/17 13:16 Last Admin: 12/30/16 07:50 Dose: 1 mg Diphenhydramine HCl (Benadryl) 25 mg PO HS PRN PRN Reason: Insomnia Stop: 06/30/17 00:42 Last Admin: 12/30/16 00:18 Dose: 25 mg Docusate Sodium (Colace) 100 mg PO BID JOHNATHON PRN Reason: Protocol Stop: 06/30/17 12:01 Last Admin: 12/30/16 07:49 Dose: 100 mg Metoprolol Tartrate (Lopressor) 12.5 mg PO BID [facility] Stop: 06/30/17 12:01 Last Admin: 12/29/16 19:22 Dose: 12.5 mg Nicotine (Nicoderm) 21 mg TD DAILY JOHNATHON PRN Reason: Protocol Stop: 07/01/17 11:46 Nitroglycerin (Nitroglycerin) 0.4 mg SL Q5MIN PRN PRN Reason: Chest Pain Stop: 06/29/17 23:42 Omeprazole (Prilosec) 40 mg PO DAILY@0630 [facility] PRN Reason: Protocol Stop: 06/30/17 13:13 Last Admin: 12/30/16 07:49 Dose: 40 mg Ondansetron HCl (Zofran) 4 mg IVP Q6HR PRN; Protocol PRN Reason: Nausea And Vomiting Stop: 06/30/17 00:42 Oxycodone/Acetaminophen (Percocet 5/325) 1 each PO Q4HR PRN PRN Reason: Severe Pain Stop: 06/30/17 00:41 Last Admin: 12/30/16 07:49 Dose: 1 each Ticagrelor (Brilinta) 90 mg PO BID [facility] Stop: 06/30/17 09:01 Last Admin: 12/30/16 07:51 Dose: 90 mg - Imaging and Cardiology Chest Xray: report reviewed Echo: report reviewed Cardiac cath: report reviewed - EKG Interpretation EKG results cardiology: other (Telemetry reviewed with average HR previous 12 hours noted to be 64, sinus rhythm. PVCs and PACs noted.) Consult Discharge Plan - Plan Referrals: Peewee Bernal MD [Primary Care Provider] -
[2016-12-30] MEDS ORDERED: Ipratropium/Albuterol Neb 3 ML IH SCH (11:45)
[2016-12-30] MEDS ORDERED: Nicotine 21 MG PATCH.TD24 TD SCH (11:45)
[2016-12-30] MEDS ORDERED: Acetaminophen 325 MG TABLET PO PRN (11:50)
[2016-12-30] MEDS ORDERED: Nitroglycerin 0.4 MG TAB.SUBL SL PRN (11:50)
[2016-12-30] MEDS ORDERED: Ondansetron 4 MG/2 ML VIAL IVP PRN (11:50)
[2016-12-30] MEDS ORDERED: *HR* HYDROcodone/Acet 5/325 mg TABLET PO PRN (11:50)
[2016-12-30] MEDS: Nicotine 21 MG PATCH.TD24 TD SCH (14:02)
[2016-12-30] MEDS: Ipratropium/Albuterol Neb 3 ML IH SCH ×2 (15:27→22:54)
--- NOTE | 2016-12-30 15:27 | Electrocardiograph Report ---
[address] [place], [place] [address] Test Date: 2016-12-29 Pat Name: Usman Meng Department: 109 Room: 10 Gender: M Mash Processing Operator: [facility] : 1955 Requested By: Sonam Correa Order Number: [id number] Reading MD: Ervin Cedillo MD Measurements Intervals [place] Rate: 71 P: 74 [place]: 155 QRS: 54 QRSD: 92 T: 75 QT: 372 QTc: 394 Interpretive Statements SINUS RHYTHM ANTERIOR ISCHEMIA Electronically Signed On 12-30-2016 15:25:58 EDT by Ervin Cedillo MD
--- NOTE | 2016-12-30 15:30 | Electrocardiograph Report ---
[address] [place] [address] Test Date: 2016-12-29 Pat Name: Usman Meng Department: 109 Room: 10 Gender: M Prior Authorization Technician: [facility] [place] : 1955 Requested By: Sonam Correa Order Number: [id number] Reading MD: Ervin Cedillo MD Measurements Intervals [place] Rate: 76 P: 75 RI: 153 QRS: 54 QRSD: 95 T: 87 QT: 358 QTc: 389 Interpretive Statements SINUS RHYTHM ANTEROLATERAL ISCHEMIA Electronically Signed On 12-30-2016 15:28:16 EDT by Ervin Cedillo MD
[2016-12-31] MEDS: *HR* OxyCODONE/APAP 5/325 TABLET PO PRN ×3 (02:56→12:50)
[2016-12-31] MEDS: Ipratropium/Albuterol Neb 3 ML IH SCH ×2 (03:50→10:34)
[2016-12-31] MEDS: *HR* Ticagrelor 90 MG TABLET PO SCH (08:02)
[2016-12-31] MEDS: Nicotine 21 MG PATCH.TD24 TD SCH (08:02)
[2016-12-31] MEDS ORDERED: clonazePAM 1 MG TABLET PO SCH (09:00)
[2016-12-31] MEDS ORDERED: Nicotine 21 MG PATCH.TD24 TD SCH (09:00)
[2016-12-31] MEDS ORDERED: Aspirin 81 MG TAB.CHEW PO SCH (09:00)
[2016-12-31 12:31] VITALS: BP 129/96
--- NOTE | 2016-12-31 12:34 | Discharge Summary ---
Date of Encounter: 12/31/16 Time of Encounter: 12:38 - Discharge Diagnosis (1) ST elevation myocardial infarction (STEMI) Priority: Primary Status: Acute Qualifiers: Involved coronary artery: LAD coronary artery Qualified Code(s): I21.02 - ST elevation (STEMI) myocardial infarction involving left anterior descending coronary artery (2) Tobacco abuse Priority: Secondary Status: Chronic - Discharge Medications Prescriptions: Nitroglycerin 0.4 mg SL Q5MIN PRN #30 tab.subl PRN Reason: Chest Pain Aspirin 81 mg PO DAILY #30 tab.chew Atorvastatin [Lipitor] 80 mg PO HS #30 tablet Metoprolol [Lopressor] 12.5 mg PO BID #30 tablet Nicotine Patch [Nicoderm] 21 mg TD DAILY #28 patch.td24 Ticagrelor [Brilinta] 90 mg PO BID #60 tablet Home Medications: Albuterol Sulfate [Proair Hfa] 2 puff IH Q4H PRN 10/15/15 [History] Trazodone HCl 200 mg PO HS 10/15/15 [History] clonazePAM [Klonopin] 1 mg PO DAILY 10/15/15 [History] Mometasone/Formoterol [Dulera 100 Mcg/5 Mcg Inhaler] 2 puff IH BID 12/29/16 [ History] Aspirin 81 mg PO DAILY #30 tab.chew 12/31/16 [Rx] Atorvastatin [Lipitor] 80 mg PO HS #30 tablet 12/31/16 [Rx] Metoprolol [Lopressor] 12.5 mg PO BID #30 tablet 12/31/16 [Rx] Nicotine Patch [Nicoderm] 21 mg TD DAILY #28 patch.td24 12/31/16 [Rx] Nitroglycerin 0.4 mg SL Q5MIN PRN #30 tab.subl 12/31/16 [Rx] Ticagrelor [Brilinta] 90 mg PO BID #60 tablet 12/31/16 [Rx] Allergies/Adverse Reactions: 3 Allergy/AdvReac Type Severity Reaction Status Date / Time codeine AdvReac Nausea Verified 07/10/16 10:35 morphine AdvReac Vomiting Verified 07/10/16 10:35 Procedures/tests Complete & Pending: Procedures Performed prior 72 hours Category Date Time Status ECG 12 lead ECG [ECG] Routine Y 12/29/16 14:33 Completed ECG 12 lead ECG [ECG] Routine Y 12/30/16 07:00 Stop Req ECG 12 lead ECG [ECG] Stat Y 12/29/16 00:42 Completed EKG [ECG 12 lead ECG] [ECG] Routine Y 12/29/16 12:50 Completed EKG [ECG 12 lead ECG] [ECG] Routine Y 12/29/16 14:30 Ordered EV echocardiogram Routine Y 12/29/16 00:42 Completed Date of admission: 12/29/16 00:14 Primary care physician: Peewee Bernal MD Consults: 12/29/16 00:42 Consult to Cardiac Rehabilitation-Phase1 [CONS] Routine Comment: Reason for Consult: AMI Call Completed: Yes Consult to Nurse Navigator [CONS] Routine Comment: Discharging clinician: Siva Mares Anticipated date of discharge: 12/31/16 - Patient Status Disposition: Home, Self-Care Condition: Fair Functional capacity at discharge: independent ambulation Overall status at discharge: patient is progressing back to baseline - Discharge Instructions Follow Up With: Peewee Bernal MD [Primary Care Provider] - Additional Instructions: RISK FACTORS: STOP SMOKING: If you smoke, STOP. Smoking or tobacco use significantly increases your risk of heart disease because nicotine causes the arteries to narrow or constrict. It also causes fats to stick to the artery. Your chances of having a heart attack are greatly increased if you continue to smoke. For more information, call the education line for smoking cessation 8-234-WYJMZLF EAT A LOW FAT/CHOLESTEROL/SODIUM DIET: This diet may help reduce your chances of having a heart attack. LIFTING: Avoid lifting anything more than 10 pounds for 5-7 days Prior to straining, laughing, sneezing and/or coughing, apply manual pressure directly over insertion site. ACTIVITY: You may walk or climb stairs as tolerated You can resume sexual activity as tolerated In general, you are encouraged to engage in a minimum of 30 minutes or more of moderate intensity physical activity, such as brisk walking, daily or at least 3 -4 times weekly BATHING Do not submerge the site into water (bath tub, hot tub, swimming pool) for 1 week. This can be a source for infection into the blood stream. You may shower after 24 hours SITE CARE: After 24 hours, you may remove the dressing and leave the site open to air. Keep the site clean and dry. Clean gently and pat dry. You can expect bruising and tenderness that gradually resolve within a week or two. Return to work as instructed per your physician Resume driving as instructed per physician Keep all scheduled follow up appointments Resume medications as instructed IMPORTANT: If prescribed a Platelet Aggregation Inhibitor such as, Plavix, Brilinta or Effient: Duration of therapy is minimum one year These medications are often used in combination with Aspirin in prevention of future heart attacks Never discontinue unless consult with your [employer] STROKE (CVA) Risk factors for a stroke are: Age, cigarette smoking, diabetes, excessive alcohol consumption, family history, high blood pressure, overweight, physical inactivity, prior stroke, heart attack, diagnosis of carotid artery stenosis or other artery disease. Warning signs: Sudden numbness or weakness of the face, arm or leg; especially on one side of the body, sudden confusion, trouble speaking or understanding, sudden trouble seeing in one or both eyes, sudden trouble walking, dizziness, loss of balance or coordination, sudden severe headache with no cause. Call 911 or go to the Emergency Room. CONGESTIVE HEART FAILURE: If you have been diagnosed with Congestive Heart Failure (CHF) and your symptoms return, make an appointment with your physician Weigh yourself daily. Notify your physician if you have a weight gain of two or more pounds in one day or five or more pounds in one week. If you experience any difficulty breathing, please call 911 BLEEDING: Although the risk of bleeding is minimal, it can happen. If you have any bleeding from the site, apply firm pressure above the puncture site for 10-15 minutes. If the bleeding does not stop, continue manual pressure and call 911 Contact your physician if: You develop a fever greater than 101 degrees Fahrenheit Your site becomes reddened or has any drainage You have an increase in pain or burning at the site or if a large knot forms at the site. If you experience chest pain, shortness of breath, dizziness, or extreme tiredness, stop the activity and rest. Please notify your physicians office if you experience any of these symptoms and they are not relieved by rest please call 911! - Diet and Activity Activity: increase activity as tolerated Diet: low fat, low cholesterol - Hospital Course Hospital course: Mr. Meng is a 61 year old male admitted with acute STEMI, s/p PCI. [facility] with 30% proximal LAD stenosis, 99% mid LAD stenosis with 2 MILADIS placed, 40% distal circumflex, 20% OM1, 70% mid RCA. Patient educated on importance of dual anti- platelet therapy uninterrupted for at least one year. Patient states understanding. Echo with LVEf 55%, mild diastolic dsyfunction, no significant valvular dysfunction, apex, apical septal, and mid anterior septal michael hypokinetic. All other michael with normal motion. On asa, statin, beta susanna, and brilinta. Right groin access site management education given to patient and family. Denies chest pain overnight. Will need staged PCI of mid RCA, currently being approved in outpatient setting and planned for Monday. Known tobacco abuse. Admits to smoking 1.5-2ppd for 40 years, nicotine patch rx given, as well as smoking cessation counseling. D/C home in stable condition, staged PCI Monday and outpt follow-up, will coordinate. Labs and vitals stable. Time spent discussing smoking cessation with patient: 3 to 10 minutes - Time Spent with Patient Total time spent providing and/or coordinating discharge services: Less than 30 minutes Physical Examination Vital Signs, Last 4 Hours Temp Pulse Resp BP Pulse Ox 12/31/16 12:00 97.8 F 63 16 129/96 93 12/31/16 11:47 69 12/31/16 10:35 14 94 Vital Signs Temp Pulse Resp BP Pulse Ox 12/31/16 12:00 97.8 F 63 16 129/96 93 12/31/16 11:47 69 12/31/16 10:35 14 94 12/31/16 08:31 98.3 F 12/31/16 08:20 67 12/31/16 08:00 80 16 154/91 93 12/31/16 03:58 98.6 F 67 21 121/88 94 12/31/16 03:00 63 12/30/16 23:00 98.6 F 76 17 155/96 94 12/30/16 22:55 17 94 12/30/16 20:00 76 18 113/87 97 12/30/16 19:55 98.5 F 12/30/16 19:00 76 12/30/16 16:30 98.0 F 12/30/16 15:28 18 92 12/30/16 15:00 74 18 118/76 94 Intake and Output 10/12/31/16 12/31/16 23:59 07:59 15:59 Intake Total 240 / 240 Output Total 1300 / 1300 900 / 900 300 / 300 Balance -1060 / -1060 -900 / -900 -300 / -300 Intake: Oral 240 / 240 Output: Urine 1300 / 1300 900 / 900 300 / 300 Other: Meal Breakfast Percent of Meal Consumed 100% General: Conversant, No Apparent Distress HEENT: Atraumatic, Normocephaly, Mucus Membranes Moist Neck: No JVD, Normal carotid pulses Cardiac: Reg Rate and Rhythm, Normal S1 and S2, No Murmur Lungs: Normal Breath Sounds, No Wheeze, Rales, Rhonchi Neuro: Alert and responsive, No focal deficits noted Abdomen: Soft, Non-Tender Skin: No rashes noted on visualized skin Musculoskeletal: No Chest Wall Tenderness Extremities: No Clubbing, No Cyanosis, No Edema, Normal Pulses
== END 2016-12-31 13:27 | disposition home or self-care (01) | DRG 247 ==
LOC: EMEROO 23:26 → ICNU 12-29 00:14
PROVIDERS: ADMIT Emergency Medicine; ATTEND Internal Medicine Cardiovascular Disease

== ENCOUNTER 2019-11-06 20:45 | Inpatient (IN) ==
[2019-11-06] MEDS ORDERED: Nitroglycerin 0.4 MG TAB.SUBL SL PRN (20:55)
[2019-11-06] MEDS ORDERED: Aspirin 81 MG TAB.CHEW PO ONE (20:55)
[2019-11-06 21:27] LABS: INR 1.2; Prothrombin Time 13.3 Seconds (9.4-12.1)
[2019-11-06 21:29] LABS: Activated Partial Thrombo Time 32.6 Seconds (26.0-36.0); Basophils % 0.4 %; Eosinophils # 0.1 K/mcL (0.0-0.6); Eosinophils % 0.7 %; Hemoglobin 12.6 g/dL (12.9-16.9); Immature Granulocytes % 0.3 % (0-4); Lymphocytes # 1.1 K/mcL (0.6-4.6); Lymphocytes % 11.8 %; Mean Corpuscular HGB Conc 33.2 g/dL (31.6-35.5); Mean Corpuscular Hemoglobin 29.6 pg (28.0-33.3); Mean Corpuscular Volume 89.2 fL (83.0-100.0); Mean Platelet Volume 9.7 fL (9.4-12.4); Monocytes # 1.2 K/mcL (0.0-1.3); Neutrophils # 6.7 K/mcL (1.6-8.9); Platelet Count 229 K/mcL (140-400); Red Blood Count 4.26 M/mcL (4.19-5.50); Segmented Neutrophils % 73.8 %
[2019-11-06 21:51] LABS: BUN/Creatinine Ratio 8 (6-26); Blood Urea Nitrogen 8 mg/dL (8-23); Calcium 8.9 mg/dL (8.6-10.3); Carbon Dioxide 26 mEq/L (23-29); Chloride 102 mEq/L (98-107); Glucose 117 mg/dL (70-105); Osmolality,Calculated 281 (280-300); Potassium 3.6 mEq/L (3.5-5.1); Sodium 136 mEq/L (136-145); Troponin I < 0.03 ng/mL (< 0.04); eGFR For African Americans > 60 (> 60); eGFR For Non-African Americans > 60 (> 60)
[2019-11-06] MEDS ORDERED: Naloxone 0.4 MG/ML INJ IVP PRN (23:44)
[2019-11-07] MEDS ORDERED: Perflutren Lipid Microsphere 1.3 ML in 0.9 % Sodium Chloride 8.7 ML IVP PRN (02:09)
[2019-11-07 03:37] LABS: Hematocrit 36.6 % (37.5-50.1); Mean Corpuscular HGB Conc 32.8 g/dL (31.6-35.5); Mean Corpuscular Volume 91.5 fL (83.0-100.0); Mean Platelet Volume 9.6 fL (9.4-12.4); Platelet Count 219 K/mcL (140-400); Red Cell Distribution Width 13.8 % (11.5-14.5)
[2019-11-07 03:58] LABS: Alanine Aminotransferase 16 Units/L (7-52); Albumin 3.3 g/dL (3.5-5.7); Albumin/Globulin Ratio 1.3 (1.1-2.2); Alkaline Phosphatase 91 Units/L (34-104); Aspartate Amino Transferase 17 Units/L (13-39); BUN/Creatinine Ratio 9 (6-26); Bilirubin,Total 0.5 mg/dL (0.3-1.0); Blood Urea Nitrogen 8 mg/dL (8-23); Calcium 8.8 mg/dL (8.6-10.3); Carbon Dioxide 28 mEq/L (23-29); Chloride 107 mEq/L (98-107); Globulin 2.5 g/dL (2.4-3.5); Glucose 92 mg/dL (70-105); Osmolality,Calculated 288 (280-300); Phosphorous 2.8 mg/dL (2.7-4.5); Potassium 3.7 mEq/L (3.5-5.1); Sodium 140 mEq/L (136-145); Total Protein 5.8 g/dL (6.4-8.9); eGFR For African Americans > 60 (> 60); eGFR For Non-African Americans > 60 (> 60)
[2019-11-07] MEDS: *HR* Heparin 5,000 UNIT/ML VIAL SQ SCH ×2 (05:39→16:59)
[2019-11-07] MEDS: Budesonide/Formoterol 80/4.5 1 PUFF INH IH SCH ×2 (10:30→21:05)
[2019-11-07] MEDS: *HR* Ticagrelor 90 MG TABLET PO SCH ×2 (11:05→19:04)
[2019-11-07] MEDS: clonazePAM 1 MG TABLET PO SCH (11:05)
[2019-11-07] MEDS: Aspirin 81 MG TAB.CHEW PO SCH (11:06)
[2019-11-07] MEDS: Isosorbide MONOnitrate (24 HR) 30 MG TAB.ER.24H PO SCH (11:09)
[2019-11-07] MEDS ORDERED: 0.9 % Sodium Chloride 1,000 ML IVC SCH (13:45)
[2019-11-07] MEDS ORDERED: traZODone 50 MG TABLET PO SCH (21:00)
[2019-11-08] MEDS: *HR* Heparin 5,000 UNIT/ML VIAL SQ SCH (05:11)
[2019-11-08 05:36] LABS: Basophils % 0.3 %; Eosinophils # 0.2 K/mcL (0.0-0.6); Eosinophils % 2.2 %; Hematocrit 36.8 % (37.5-50.1); Hemoglobin 11.9 g/dL (12.9-16.9); Immature Granulocytes % 0.3 % (0-4); Lymphocytes # 1.2 K/mcL (0.6-4.6); Lymphocytes % 15.9 %; Mean Corpuscular HGB Conc 32.3 g/dL (31.6-35.5); Mean Corpuscular Hemoglobin 29.3 pg (28.0-33.3); Mean Corpuscular Volume 90.6 fL (83.0-100.0); Mean Platelet Volume 9.7 fL (9.4-12.4); Monocytes # 0.9 K/mcL (0.0-1.3); Monocytes % 11.9 %; Neutrophils # 5.3 K/mcL (1.6-8.9); Platelet Count 244 K/mcL (140-400); Red Blood Count 4.06 M/mcL (4.19-5.50); Red Cell Distribution Width 13.9 % (11.5-14.5); Segmented Neutrophils % 69.4 %; White Blood Count 7.7 K/mcL (4.3-11.1)
[2019-11-08] MEDS: Budesonide/Formoterol 80/4.5 1 PUFF INH IH SCH (07:57)
[2019-11-08] MEDS: Isosorbide MONOnitrate (24 HR) 30 MG TAB.ER.24H PO SCH (08:10)
[2019-11-08] MEDS: *HR* Ticagrelor 90 MG TABLET PO SCH (08:10)
[2019-11-08] MEDS: clonazePAM 1 MG TABLET PO SCH (08:10)
[2019-11-08] MEDS: Aspirin 81 MG TAB.CHEW PO SCH (08:13)
[2019-11-08] MEDS ORDERED: Gabapentin 400 MG CAPSULE PO SCH (09:00)
[2019-11-08 09:23] VITALS: BP 115/62
[2019-11-08] MEDS ORDERED: NON-FORMULARY MEDICATION 1 EACH EACH (Trazodone Hcl 200 MG) PO SCH (21:00)
== END 2019-11-08 11:23 | disposition home or self-care (01) | DRG 313 ==
LOC: EMEROOARM 20:45 → 3BNU 20:45 → SUATTDRO 23:23 → 3BNU 11-07 00:15
PROVIDERS: ADMIT Internal Medicine; ATTEND Internal Medicine